=== PATIENT | male | born 1970 | race African-American/Black ===

== ENCOUNTER 2022-01-23 05:54 | Emergency (ER) | payer OTHER ==
[2022-01-23 06:12] VITALS: BP 125/77; PULSE 59; TEMP 97.7; BMI 36.6
[2022-01-23 09:20] LABS: HEMATOCRIT 44.8 % (35.4-49); HEMOGLOBIN 14.8 GM/dL (11.7-16.9); MCH 28.1 pg (25.7-33.7); MCHC 33.1 g/dl (32.0-35.9); MEAN PLT VOLUME 8.6 fl (7.5-11.1); PLATELET COUNT 226 10^3/uL (134-434); RBC 5.27 M/mm3 (4.00-5.60); WHITE BLOOD COUNT 4.7 K/mm3 (4.0-10.0)
[2022-01-23 09:40] LABS: CALCIUM 8.6 mg/dL (8.5-10.1)
[2022-01-23 09:41] LABS: BLOOD UREA NITROGEN 13.2 mg/dL (7-18)
[2022-01-23 09:44] LABS: ALBUMIN 3.4 g/dl (3.4-5.0); CREATININE 1.1 mg/dL (0.55-1.3)
[2022-01-23 09:45] LABS: BILIRUBIN,TOTAL 0.6 mg/dL (0.2-1); TOT PROT 7.3 g/dl (6.4-8.2)
[2022-01-23 11:09] LABS: ANISOCYTOSIS 0; HELMET CELLS 0; HOWELL-JOLLY BODIES 0; MACROCYTOSIS 0; OVALOCYTE 0; ROULEAU 0; SICKELED CELLS 0; TARGET CELLS 0; TEAR DROP CELLS 0; TOXIC GRANULATION 0
== END 2022-01-23 11:25 | disposition home or self-care (01) ==
LOC: JER 05:54
DX: K64.8 Other hemorrhoids (principal)
CPT/HCPCS: 36415; 74177-TC; 80053; 85025; 99285-25; Q9967